=== PATIENT | female | born 1960 | race Caucasian/White ===

== ENCOUNTER 2017-03-23 08:53 | Emergency (ER) | payer OTHER ==
[~2017-03-23] VITALS: Ht 177.8 cm; Wt 69.4 kg
[2017-03-23] MEDS ORDERED: COUMADIN5 MG PO (09:17)
[2017-03-23] MEDS ORDERED: COUMADIN7.5 MG PO (09:18)
== END 2017-03-23 10:19 | disposition home or self-care (01) ==
LOC: ED 08:53
DX: I80.01 Phlebitis and thrombophlebitis of superficial vessels of right lower extremity (principal); Z88.0 Allergy status to penicillin; Z79.01 Long term (current) use of anticoagulants
CPT/HCPCS: 85610; 93971; 99284

== ENCOUNTER 2020-07-03 14:08 | Emergency (ER) | payer OTHER ==
[~2020-07-03] VITALS: Ht 177.8 cm; Wt 69.4 kg
[~2020-07-03 14:08] MED LIST: COUMADIN7.5 MG PO; RALOXIFENE HCL60 MG PO; WARFARIN SODIUM2 MG PO; WARFARIN SODIUM5 MG PO
[2020-07-03] MEDS ORDERED: KEFLEX500 MG PO (16:28)
--- NOTE | 2020-07-04 17:34 | EKG ---
[facility] [address] [place] [address] Signed Normal sinus rhythm Possible Left atrial enlargement Incomplete right bundle branch block Nonspecific T wave abnormality Abnormal ECG No previous ECGs available Confirmed by DIONY CABALLERO MD ([id number]) on 07/04/2020 5:34:01 PM Electronically Signed By: DIONY CABALLERO MD 07/04/20 1734 PATIENT NAME: [id number] Electrocardiogram DATE OF : 58 PHYSICIAN: DIONY CABALLERO MD REPORT #: [id number] REPORT IS CONFIDENTIAL AND NOT TO BE RELEASED WITHOUT AUTHORIZATION
== END 2020-07-03 16:51 | disposition home or self-care (01) ==
LOC: ED 14:08
DX: R55 Syncope and collapse (principal); R07.89 Other chest pain; S22.009A Unspecified fracture of unspecified thoracic vertebra, initial encounter for closed fracture; N39.0 Urinary tract infection, site not specified; Z87.891 Personal history of nicotine dependence; Z79.899 Other long term (current) drug therapy; Z79.01 Long term (current) use of anticoagulants
CPT/HCPCS: 0297T; 0298T; 70450; 71046; 80053; 81001; 83735; 84443; 84484; 85025; 85610; 93005; 93010; 99284-25